=== PATIENT | male | born 1960 | race Caucasian/White ===

== ENCOUNTER 2019-04-27 15:27 | Emergency (ER) | payer MEDICAID, SELFPAY ==
[2019-04-27 15:29] VITALS: BP 154/101; PULSE 86; RESP 18; TEMP 36.6; O2SAT 95; BMI 26.3
--- NOTE | 2019-04-27 15:36 | ED.DCSUM_ITS ---
History of Present Illness Chief Complaint: Laceration Detail of Chief Complaint: Left index finger laceration Informant: Patient Onset: Today Current Severity: Mild Maximum Severity: Mild Narrative: Patient presents with a laceration to his left index finger. He bought a knife set at a local store and was looking at it in the car. He went to put the knife back into the safety shield and suffered a laceration to his left index finger. He has good range of motion. Sensation is intact. His last tetanus update was 6 weeks ago. Past Medical History - Allergies and Home Meds Allergies/Adverse Reactions: Allergies Penicillins [PCN] Allergy (Verified 04/27/19 15:29) Anaphylaxis Primary Care Physician: NOT,DEFINED [NON-STAFF] - Prior records reviewed: Yes Past Medical History: - - Reviewed Lives: Spouse/ Significant Other Review of Systems General: Denies: Chills, Fever ENT: Denies: Bilateral ear pain Cardiovascular: Denies: Chest pain Respiratory: Denies: Dyspnea Gastrointestinal: Denies: Abdominal pain Musculoskeletal: Reports: Extremity Pain Skin: Reports: Wounds Neurological: Denies: Weakness, Parasthesia Hematologic: Denies: Easy bruising, Easy bleeding Allergy: Denies: Uticaria Physical Exam Vital Signs/Narrative: Vital Signs Temp Pulse Resp BP Pulse Ox 04/27/19 15:29 98 F 86 18 154/101 H 95 Inital Vital Signs reviewed: Yes General: Well nourished, Well developed ENT: Moist mucous membranes Cardiovascular: Regular rate, Regular rhythm Respiratory: No distress, CTA bilaterally Abdomen: Soft, Nontender Extremities: - - 2 cm linear laceration of the extensor part surface of the left index finger. Patient has full range of motion. Sensation is intact. Good cap refill. Skin: - - As above Neurological: Alert, Oriented x3 Psychological: Normal affect Diagnostic/Tx/Re-eval - Medical Decision Making Left index finger is anesthetized with total of 4 cc of 1% lidocaine. Digital block was performed as well as local along the proximal wound. Wound was i rrigated. A total of 5 simple interrupted sutures of 5-0 nylon were placed. Dressing is applied. Patient is to have sutures removed in 7 to 10 days. Procedures - Lacerations No standard instances Length: 0.79 in Depth: Skin Shape: Linear Laceration repair: Irrigated Number of Sutures/Campos: 5 Suture Information: Simple, 5-0 ED Disposition - Plan for ED Patient: Disposition: Home or Assisted Living Diagnosis: Finger laceration Instructions: LACERATION, Hand Additional Instructions: Have stitches removed in 7-10 days.
[2019-04-27 16:09] VITALS: RESP 16
== END 2019-04-27 16:10 | disposition home or self-care (01) ==
PROVIDERS: Emergency Provider Emergency Medicine; Family Provider Nurse Practitioner Adult Health; PCP Nurse Practitioner Adult Health
DX: S61.211A Laceration without foreign body of left index finger without damage to nail, initial encounter (principal); W26.0XXA Contact with knife, initial encounter; Y93.89 Activity, other specified; Y92.810 Car as the place of occurrence of the external cause
CPT/HCPCS: 12001; 99285

== ENCOUNTER 2020-09-30 10:07 | Outpatient (RCR) | payer MEDICAID, SELFPAY ==
[2020-09-30] MEDS: COVID-19 VACC, MRNA(PFIZER)/PF 30 MCG/0.3 ML SYRINGE IM (08:19)
[2020-10-21] MEDS: COVID-19 VACC, MRNA(PFIZER)/PF 30 MCG/0.3 ML SYRINGE IM (08:11)
== END 2020-09-30 23:59 ==
LOC: IMMUN 10:07
PROVIDERS: PCP Nurse Practitioner Adult Health; Visit Provider Family Medicine
DX: Z23 Encounter for immunization (principal)
CPT/HCPCS: 0001A; 0002A; 91300